=== PATIENT | male | born 1965 | race Caucasian/White ===

== ENCOUNTER 2018-04-06 19:17 | Emergency (ER) | payer MEDICAID, OTHER ==
[~2018-04-06] VITALS: Ht 180.3 cm; Wt 72.6 kg
[2018-04-06 19:35] VITALS: BP 127/92
[2018-04-06 20:14] LABS: Basophils # (auto) 0.1 uL; Basophils % (auto) 0.6 % (0.0-2.0); Eosinophils # (auto) 0 uL; Eosinophils % (auto) 0.2 % (0.0-7.0); Hematocrit 52.2 % (41.0-53.0); Hemoglobin 17.5 g/dL (13.5-17.5); Lymphocytes # (auto) 1.6 uL; Lymphocytes % (auto) 13.5 % (10.0-50.0); Mean Corpuscular Hemoglobin 30.9 pg (28.0-32.0); Mean Corpuscular Hgb Conc. 33.6 g/dL (32.0-36.0); Mean Corpuscular Volume 91.9 fL (80.0-100.0); Monocytes # (auto) 1.1 uL; Monocytes % (auto) 9.3 % (0.0-12.0); Neutrophils # (auto) 8.9 uL; Neutrophils % (auto) 76.4 % (37.0-80.0); Nucleated Red Blood Cells % 0.1 %; Platelet Count (auto) 341 10^3/uL (140-450); Red Blood Cells 5.68 10^6/uL (4.5-5.90); White Blood Cell 11.6 10^3/uL (4.4-10.8)
[2018-04-06 20:28] LABS: Albumin 4.4 g/dL (3.4-5.0); Anion Gap 12 (5-15); Blood Urea Nitrogen 21 mg/dL (7-18); Calcium 9.9 mg/dL (8.5-10.1); Carbon Dioxide 22 mmol/L (21-32); Chloride 105 mmol/L (98-107); Glucose 109 mg/dL (74-106); Magnesium 2.6 mg/dL (1.6-2.6); Potassium 4.4 mmol/L (3.5-5.1); Sodium 139 mmol/L (136-145)
[2018-04-06 20:30] LABS: Alanine Aminotransferase 23 U/L (16-61); Aspartate Aminotransferase 19 U/L (15-37); BUN/Creatinine Ratio 10.6; GFR African American 46 mL/min; GFR Non-African American 38 mL/min
[2018-04-06 20:35] LABS: Alkaline Phosphatase 88 U/L (45-117); Bilirubin, Total 0.9 mg/dL (0.2-1.0)
== END 2018-04-07 01:01 | disposition left against medical advice (07) ==
LOC: ER 19:17
DX: E86.0 Dehydration (principal); Z53.21 Procedure and treatment not carried out due to patient leaving prior to being seen by health care provider
CPT/HCPCS: 36415; 80053; 83735; 84484; 85025; 93005